=== PATIENT | male | born 1985 | race Caucasian/White ===

== ENCOUNTER 2020-08-21 16:39 | Emergency (ER) | payer MEDICAID ==
[~2020-08-21] VITALS: Ht 167.6 cm; Wt 77.1 kg
[2020-08-21 17:28] VITALS: BP 144/76
--- NOTE | 2020-08-21 17:39 | NUR ---
C/O COUGH, SORE THROAT, GENERALIZED ABDOMINAL PAIN 8/10 X 2 DAYS. 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 MED HX: DENIES
[2020-08-21 18:10] VITALS: BP 144/76
--- NOTE | 2020-08-21 18:10 | NUR ---
Patient discharged with v/s stable. Written and verbal after care instructions given and explained. Patient alert, oriented and verbalized understanding of instructions. Ambulatory with steady gait. All questions addressed prior to discharge. ID band removed. Patient advised to follow up with PMD. Rx of PROMETHAZINE, IBUPROFEN &ZOFRAN given. Patient educated on indication of medication including possible reaction and side effects. Opportunity to ask questions provided and answered.
--- NOTE | 2020-08-21 18:10 | NUR ---
COVID SWAB SENT TO LAB.
== END 2020-08-21 18:10 | disposition home or self-care (01) ==
LOC: MED 16:39
DX: B34.9 Viral infection, unspecified (principal); Z20.828 Contact with and (suspected) exposure to other viral communicable diseases; R03.0 Elevated blood-pressure reading, without diagnosis of hypertension; F17.210 Nicotine dependence, cigarettes, uncomplicated
CPT/HCPCS: 99283; U0003